=== PATIENT | male | born 1980 | race Caucasian/White ===

== ENCOUNTER 2017-04-08 11:01 | Emergency (ER) | payer MEDICAID ==
[~2017-04-08] VITALS: Ht 180.3 cm; Wt 84.4 kg
[2017-04-08 12:37] VITALS: BP 117/75
== END 2017-04-08 12:37 | disposition home or self-care (01) ==
LOC: ED 11:01
DX: N48.89 Other specified disorders of penis (principal); Z88.0 Allergy status to penicillin
CPT/HCPCS: 87491; 87591; J7030

== ENCOUNTER 2019-02-17 03:45 | Emergency (ER) | payer SELFPAY ==
[~2019-02-17] VITALS: Ht 175.3 cm; Wt 88.5 kg
[2019-02-17 03:51] VITALS: Ht 175.3 cm; Wt 88.5 kg
[2019-02-17 04:58] LABS: BASOPHIL % 0.4 % (0-2); PLATELET COUNT 195 x10^3mcL (130-400); RED CELL DISTRIBUTION WIDTH 12.7 % (11.5-14.5)
[2019-02-17 05:16] LABS: CALCIUM 8.5 mg/dL (8.5-10.1); CHLORIDE SERUM 105 mmol/L (98-107); CREATININE SERUM 0.9 mg/dL (0.7-1.3); GFR1 > 60 mL/min; GLUCOSE SERUM 99 mg/dL (74-106); POTASSIUM SERUM 3.8 mmol/L (3.5-5.1); SODIUM SERUM 142 mmol/L (136-145)
[2019-02-17 05:20] LABS: ALBUMIN 4.2 g/dL (3.4-5.0); ALKALINE PHOSPHATASE 111 U/L (46-116); ALT/SGPT 34 U/L (16-63); AST/SGOT 21 U/L (15-37); BILIRUBIN TOTAL 0.26 mg/dL (0.20-1.00); TOTAL PROTEIN, SERUM 7.7 g/dL (6.4-8.2)
[2019-02-17 05:56] VITALS: BP 111/71
== END 2019-02-17 05:57 | disposition home or self-care (01) ==
LOC: ED 03:45
PROVIDERS: Emergency Medicine
DX: R11.10 Vomiting, unspecified (principal); F41.9 Anxiety disorder, unspecified; F10.10 Alcohol abuse, uncomplicated; Z88.0 Allergy status to penicillin
CPT/HCPCS: J2405; J7030

== ENCOUNTER 2019-04-17 07:27 | Emergency (ER) | payer MEDICAID ==
[~2019-04-17] VITALS: Ht 180.3 cm; Wt 86.4 kg
[2019-04-17 07:36] VITALS: BP 114/72; Ht 180.3 cm; Wt 86.4 kg
[2019-04-21] MEDS ORDERED: ACYCLOVIR400 MG PO (13:56)
[2019-04-21] MEDS ORDERED: NORCO1 TA2 PO (13:57)
[2019-04-21] MEDS ORDERED: DISCOVY PO (13:59)
[2019-04-21] MEDS ORDERED: VIRAMUNE200 MG PO (14:00)
[2019-04-23] MEDS ORDERED: ACYCLOVIR400 MG PO (10:24)
[2019-04-23] MEDS ORDERED: ACYCLOVIR800 MG PO (10:24)
== END 2019-04-17 08:02 | disposition home or self-care (01) ==
LOC: ED 07:27
DX: B02.9 Zoster without complications (principal); Z88.0 Allergy status to penicillin

== ENCOUNTER 2019-04-20 17:48 | Emergency (ER) | payer MEDICAID ==
[~2019-04-20] VITALS: Ht 180.3 cm; Wt 84.8 kg
[2019-04-20 17:53] VITALS: Ht 180.3 cm; Wt 84.8 kg
[2019-04-20 20:39] LABS: BASOPHIL % 0.4 % (0-2); PLATELET COUNT 244 x10^3mcL (130-400); RED CELL DISTRIBUTION WIDTH 12.4 % (11.5-14.5)
[2019-04-20 20:46] LABS: CALCIUM 8.9 mg/dL (8.5-10.1); CARBON DIOXIDE 27.7 mmol/L (21-32); CHLORIDE SERUM 102 mmol/L (98-107); CREATININE SERUM 1.1 mg/dL (0.7-1.3); GFR1 > 60 mL/min; GLUCOSE SERUM 96 mg/dL (74-106); POTASSIUM SERUM 3.9 mmol/L (3.5-5.1); SODIUM SERUM 139 mmol/L (136-145)
[2019-04-20 20:50] LABS: ALBUMIN 3.9 g/dL (3.4-5.0); ALKALINE PHOSPHATASE 128 U/L (46-116); ALT/SGPT 39 U/L (16-63); AST/SGOT 16 U/L (15-37); BILIRUBIN TOTAL 0.5 mg/dL (0.20-1.00)
[2019-04-20 20:52] LABS: TOTAL PROTEIN, SERUM 8.7 g/dL (6.4-8.2)
[2019-04-20 21:47] LABS: microscopic required? NO
[2019-04-20 21:59] LABS: urine erythrocyte NEGATIVE (NEGATIVE)
[2019-04-20 22:45] VITALS: BP 105/63
[2019-04-21] MEDS ORDERED: ACYCLOVIR400 MG PO (13:56)
[2019-04-21] MEDS ORDERED: NORCO1 TA2 PO (13:57)
[2019-04-21] MEDS ORDERED: DISCOVY PO (13:59)
[2019-04-21] MEDS ORDERED: VIRAMUNE200 MG PO (14:00)
[2019-04-23] MEDS ORDERED: ACYCLOVIR400 MG PO (10:24)
[2019-04-23] MEDS ORDERED: ACYCLOVIR800 MG PO (10:24)
== END 2019-04-20 22:46 | disposition home or self-care (01) ==
LOC: ED 17:48
PROVIDERS: Emergency Medicine
DX: B02.9 Zoster without complications (principal); R50.9 Fever, unspecified; Z88.0 Allergy status to penicillin
CPT/HCPCS: J0133; J1885; J7030; Q0092

== ENCOUNTER 2019-04-21 11:53 | Inpatient (IN) | payer SELFPAY, OTHER, MEDICAID | END 2019-04-23 15:10 | disposition home or self-care (01) | LOC: ED 11:53 → DU 16:00 → ED 11:53 → DU 16:00 → ED 11:53 → DU 14:11 → MU 04-23 12:09 → ED 11:53 → MU 04-23 12:09 → ED 11:53 → MU 04-23 12:09 → ED 11:53 → MU 04-23 15:10 → DU 15:19 ==